=== PATIENT | male | born 1990 | race Caucasian/White ===

== ENCOUNTER 2022-05-19 20:00 | Emergency (ER) | payer SELFPAY ==
[2022-05-19] MEDS ORDERED: Bupivacaine 0.25% 10 ML VIAL ONE (21:12)
[2022-05-19] MEDS ORDERED: Lidocaine 1% PF 5 ML VIAL ONE (21:12)
[2022-05-19] MEDS ORDERED: Ketorolac Tromethamine 30 MG/ML VIAL ONE (21:12)
[2022-05-19] MEDS ORDERED: Bicillin LA 1.2 MILLION UNITS/2 ML SYRINGE ONE (21:19)
== END 2022-05-19 22:10 | disposition home or self-care (01) ==
LOC: ERS 20:00
DX: K04.7 Periapical abscess without sinus (principal); F17.290 Nicotine dependence, other tobacco product, uncomplicated
CPT/HCPCS: 41800; 96372; J0561; J1885; S0020

== ENCOUNTER 2023-01-03 09:40 | Emergency (ER) | payer SELFPAY ==
[2023-01-03 11:12] LABS: SARS-CoV-2 NAA Rapid Test Not Detected (NotDetected)
== END 2023-01-03 10:48 | disposition home or self-care (01) ==
LOC: ERS 09:40
DX: U07.1 COVID-19 (principal); F17.210 Nicotine dependence, cigarettes, uncomplicated
CPT/HCPCS: 99282

== ENCOUNTER 2024-02-19 11:34 | Emergency (ER) | payer SELFPAY ==
[2024-02-19] MEDS ORDERED: Ketorolac Tromethamine 30 MG (1 mL) VIAL ONE ×2 (13:31→17:17)
== END 2024-02-19 17:28 | disposition home or self-care (01) ==
LOC: ERS 11:34
DX: S32.435A Nondisplaced fracture of anterior column [iliopubic] of left acetabulum, initial encounter for closed fracture (principal); M43.06 Spondylolysis, lumbar region; F17.210 Nicotine dependence, cigarettes, uncomplicated; W17.89XA Other fall from one level to another, initial encounter
CPT/HCPCS: 72131; 76870; 93976; 96372; J1885